=== PATIENT | female | born 1980 ===

== ENCOUNTER 2017-09-10 17:02 | Emergency (ER) | payer SELFPAY ==
[2017-09-10 17:12] VITALS: BMI 36.9
[2017-09-10 17:23] VITALS: RESP 18; TEMP 98.2; O2SAT 99
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
[2017-09-10 18:31] VITALS: BP 124/71; PULSE 75
--- NOTE | 2017-09-11 08:34 | RAD ---
PROCEDURE: Left Wrist Radiographs. HISTORY: pain COMPARISON: None. FINDINGS: BONES: Normal. No fracture. JOINTS: Normal. No dislocation. SOFT TISSUES: Normal. OTHER FINDINGS: None. IMPRESSION: Normal left wrist radiographs.
== END 2017-09-10 18:31 | disposition home or self-care (01) ==
LOC: ED 17:02
DX: S63.502A Unspecified sprain of left wrist, initial encounter (principal); W19.XXXA Unspecified fall, initial encounter